=== PATIENT | male | born 1970 | race Caucasian/White ===

== ENCOUNTER 2016-10-24 04:12 | Emergency (ER) | payer OTHER ==
[~2016-10-24] VITALS: Ht 175.3 cm; Wt 103.4 kg
[~2016-10-24 04:12] MED LIST: ASPIRIN81 M4 PO; ATORVASTATIN CA80 M1 PO; AUGMENTIN 875 M1 TAB PO; HEPARIN-1/25000 UNIT IV; HYDROCODONE/ACE1 TA1 PO; METOPROLOL SUCC25 M1 PO; NITRO-BID1 GM TOP; NORCO 325 MG-51 TAB PO; PLAVIX75 M1 PO; POLYTRIM O200 GTT/BO OP
[2016-10-24] MEDS ORDERED: LISINOPRIL5 M1 PO (04:28)
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
[2016-10-24] MEDS ORDERED: CYCLOBENZAPRINE10 M1 PO (05:27)
[2016-10-24] MEDS ORDERED: TRAMADOL HCL50 M1 PO (05:27)
[2016-10-24 06:06] VITALS: BP 128/77
== END 2016-10-24 06:07 ==
LOC: ERH 04:12
DX: S16.1XXA Strain of muscle, fascia and tendon at neck level, initial encounter (principal); V47.0XXA Car driver injured in collision with fixed or stationary object in nontraffic accident, initial encounter
CPT/HCPCS: 96372; J1885

== ENCOUNTER 2017-12-15 09:21 | Emergency (ER) | payer OTHER ==
[~2017-12-15 09:21] MED LIST changes: +CYCLOBENZAPRINE10 M1 PO; +LISINOPRIL5 M1 PO; +TRAMADOL HCL50 M1 PO
[2017-12-15 09:50] LABS: ABSOLUTE BASOPHIL COUNT 0 /CUMM (0.0-0.2); ABSOLUTE EOSINOPHIL COUNT 0.2 /CUMM (0.0-0.7); ABSOLUTE GRANULOCYTE CT 4.4 /CUMM (1.4-6.5); ABSOLUTE LYMPH COUNT 1.4 /CUMM (1.2-3.4); ABSOLUTE MONOCYTE COUNT 0.5 /CUMM (0.10-0.60); BASOPHIL % 0.6 % (0.0-2.0); EOSINOPHIL % 2.9 % (0-5); GRANULOCYTE % 67.6 % (42.2-75.2); HEMATOCRIT 46.4 % (42-52); MEAN CORPUSCULAR HGB 29.5 PG (27.0-31.0); MEAN CORPUSCULAR HGB CONC 33.8 G/DL (33.0-37.0); MEAN CORPUSCULAR VOLUME 87.4 FL (80.0-94.0); MEAN PLATELET VOLUME 8.9 FL (7.4-10.4); PLATELET COUNT 177 /CUMM (130-400); RBC DISTRIBUTION WIDTH 13.3 % (11.5-14.5); WHITE BLOOD CELL COUNT 6.5 /CUMM (4.8-10.8)
--- NOTE | 2017-12-15 12:15 | ED GENERAL ADULT ---
History of Present Illness General Chief Complaint: Abdominal Pain/Flank Pain Stated Complaint: LOWER ABD PAIN Source: patient Exam Limitations: no limitations Vital Signs & Intake/Output Vital Signs & Intake/Output Vital Signs Date Time Temp Pulse Resp B/P B/P Pulse O2 O2 Flow FiO2 Mean Ox Delivery Rate 12/15 1741 136/82 12/15 1448 97.7 77 16 180/98 99 Room Air 12/15 1139 98.2 76 16 132/80 98 Room Air Room Air 12/15 0928 98.8 77 18 132/79 98 Room Air Allergies Coded Allergies: No Known Allergies (02/15/16) Reconcile Medications Clopidogrel Bisulfate (Plavix) 75 MG TABLET 1 TAB PO DAILY STENT PLACEMENT Lisinopril 5 MG TABLET 5 MG PO DAILY HIGH BLOOD PRESSURE (Reported) Metformin HCl 500 MG TABLET 1 TAB PO BID DIABETES (Reported) Metoprolol Tartrate 25 MG TABLET 0.5 TAB PO BID HEART (Reported) Oxycodone HCl/Acetaminophen (Percocet 5-325 MG Tablet) 5 MG-325 MG TABLET 1 TAB PO 4 TIMES/DAY PRN PAIN Rosuvastatin Calcium (Crestor) 40 MG TABLET 1 TAB PO DAILY CHOLESTEROL ( Reported) Triage Note: 47 YO MALE TO TRIAGE C/O LOWER ABC PAIN SINCE THIS AM THAT STARTED SUDDENLY. STATES HX OF KIDNEY STONES BUT "THIS FEELS DIFFERENT" STATES WHEN HE URIATES HE IS ONLY ABLE TO GET A SMALL AMOUT OUT. Triage Nurses Notes Reviewed? yes HPI: Patient is a 47-year-old male with past medical history of ureterolithiasis 10 years ago which he passed on his own without intervention, who presents today with abdominal pain and urinary hesitancy. He reports that he woke and performed his usual routine but did not have his usual morning bowel movement. He later developed lower abdominal cramping in the suprapubic region, and when he attempted to urinate found that it was difficult. He also noted that his urine was dark. At triage, protocol orders were placed including laboratory studies, urinalysis, and CT stone search. At the time of my initial assessment the patient had received analgesia and was feeling much improved. He denies any chest discomfort, dyspnea, diaphoresis, or other classically cardiac features. He does have history of acute coronary syndrome with angioplasty and stent placement, and states that this feels nothing like his prior heart attack. Past History Travel History Traveled to [place] past 21 day No Medical History Any Pertinent Medical History? 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 No Review of Systems Review of Systems Constitutional: Reports: no symptoms. EENTM: Reports: no symptoms. Respiratory: Reports: no symptoms. Cardiovascular: Reports: no symptoms. GI: Reports: see HPI, abdominal pain, nausea. Genitourinary: Reports: no symptoms. Musculoskeletal: Reports: see HPI, back pain. Skin: Reports: no symptoms. Neurological/Psychological: Reports: no symptoms. Hematologic/Endocrine: Reports: no symptoms. Immunologic/Allergic: Reports: no symptoms. All Other Systems: Reviewed and Negative Physical Exam Physical Exam General Appearance: severe distress Comments: HEENT: Inspection of the head reveals a normocephalic cranium with no signs of trauma. Ophtho: Extraocular muscles are intact and pupils are equal and reactive to light bilaterally with no afferent pupillary defect. The sclera are noninjected , and there is no obvious discharge. Neck: The trachea is midline, there is no obvious asymmetry or mass over the thyroid, and there is no midline cervical spine tenderness Respiratory: The lungs are clear and equal to auscultation bilaterally without wheezes, rales, or rhonchi. The patient exhibits no signs of labored breathing. Cardiac: Regular rhythm and non-tachycardic without appreciable murmurs on auscultation. No obvious JVD. GI: Abdominal examination reveals tenderness in the suprapubic region just to the left of midline. There is negative Mondragon's sign, negative McBurney's point tenderness, negative Henrry sign, negative Caal-Mayes sign, and no signs of peritonitis whatsoever on percussion or deep palpation. The skin is intact with no sign of trauma or infection. : Dark colored urine Musculoskeletal: Mild left CVA pain radiating around in a ureteral distribution toward the left lower quadrant of the abdomen Neuro: The patient is oriented to person, place, time, and situation, with no obvious focal motor deficits. There were no sensory deficits, and the patient exhibit purposeful movement of all 4 extremities. Cranial nerves II through XII are intact, and gait is normal. Behavioral: Calm and cooperative Dermatologic: Dermatologic examination reveals no diffuse rashes or exanthems, no petechiae, no ecchymoses, and no other signs of erythema or infection. Core Measures ACS in differential dx? No CVA/TIA Diagnosis: No Sepsis Present: No Sepsis Focused Exam Completed? No Progress Differential Diagnoses I considered the following diagnoses in my evaluation of the patient: Ureterolithiasis, appendicitis, cystitis, bowel obstruction, kidney tumor, diverticulitis Plan of Care: Orders Procedure Date/time Status Regular Diet 12/15 D Active Intake & Output 12/15 1139 Active URINALYSIS 12/15 934 Complete TROPONIN LEVEL 12/15 934 Complete LIPASE 12/15 934 Complete COMPREHENSIVE METABOLIC PANEL 12/15 934 Complete CBC WITHOUT DIFFERENTIAL 12/15 934 Complete Laboratory Tests 12/15/17 1125: Urinalysis MOD H, Urine Color YEL, Urine Clarity HAZY H, Urine pH 5.5, Ur Specific [place] >= 1.030, Urine Protein 30 H, Urine Ketones NEG, Urine Nitrite NEG, Urine Bilirubin NEG@ICTO, Urine Urobilinogen 0.2, Ur Leukocyte Esterase NEG , Ur Microscopic SEDIMENT EXAMINED, Urine RBC >75 H, Urine WBC RARE, Ur Epithelial Cells FEW, Urine Bacteria RARE H, Hyaline Casts 1-3 H, Urine Mucus MOD H, Urine Hemoglobin LARGE H, Urine Glucose NEG 12/15/17 0936: Anion Gap 14, Estimated GFR > 60, BUN/Creatinine Ratio 16.7, Glucose 139 H, Calcium 9.4, Total Bilirubin 0.8, AST 32, ALT 57, Alkaline Phosphatase 55, Troponin I < 0.01, Total Protein 7.5, Albumin 4.8, Globulin 2.7, Albumin/ Globulin Ratio 1.8, Lipase 69, CBC w Diff NO MAN DIFF REQ, RBC 5.30, MCV 87.4, MCH 29.5, MCHC 33.8, RDW 13.3, MPV 8.9, Gran % 67.6, Lymphocytes % 21.4, Monocytes % 7.5, Eosinophils % 2.9, Basophils % 0.6, Absolute Granulocytes 4.4, Absolute Lymphocytes 1.4, Absolute Monocytes 0.5, Absolute Eosinophils 0.2, Absolute Basophils 0 Initial ED EKG: none Comments: Patient presented with symptoms consistent with ureterolithiasis. Workup obtained confirmed this diagnosis. 3 mm stone at the left UVJ was seen. Creatinine normal. Initial doses of morphine was effective, and subsequent ketorolac was administered. Patient almost required hospitalization for analgesia, however he then passed his stone in the hospital bathroom with resolution of his symptoms. He will follow-up with his CP and with urology for further recommendations. Medical screening exam is otherwise negative, patient stable at time of discharge. Departure Departure Time of Disposition: 1426 Disposition: STILL A PATIENT Condition: Stable Clinical Impression Primary Impression: Kidney stone on left side Referrals: Patient Has No Primary Care Dr Additional Instructions: Please call this number to make an appointment with our urology team to discuss your kidney stones. Until then, use naproxen/Aleve every 12 hours for your pain. Urinate through the strainer we've provided and save any stones that you pass. Departure Forms: Customer Survey General Discharge Information Prescriptions: Current Visit Scripts Oxycodone HCl/Acetaminophen (Percocet 5-325 MG Tablet) 1 TAB PO 4 TIMES/DAY PRN PAIN #6 TAB Admission Note Spoke With: Garcia Coleman MD Documentation of Exam: Documentation of any treatments & extenuating circumstances including Concerns Regarding Discharge (functional status, medication knowledge or non-compliance, living conditions, etc.) that warrant an admission rather than observation: Severe kidney stone pain requiring multiple dosages of analgesics here in the emergency department of the narcotic modality. Patient was controlled for a time but then writhing in pain in the room and I do not feel that he would be appropriate for outpatient management. He may require urology intervention during his inpatient stay. Critical Care Note Critical Care Note Critical Care Time: non-applicable
[2017-12-15] MEDS ORDERED: METOPROLOL TART25 M1 PO (12:32)
[2017-12-15] MEDS ORDERED: METFORMIN HCL500 M3 PO (12:32)
[2017-12-15] MEDS ORDERED: CRESTOR40 M2 PO (12:32)
--- NOTE | 2017-12-15 12:54 | CT SCAN REPORT ---
EXAMINATION: CT ABDOMEN AND PELVIS WITHOUT CONTRAST CLINICAL INFORMATION: Left lower abdominal pain, renal stone. COMPARISON: 07/20/2014 CT scan. TECHNIQUE: Multidetector volumetric imaging was performed from the superior aspect of the liver through the pubic symphysis. Sagittal and coronal reformatted images were obtained on the technologist's workstation. DLP: 1011.39 mGy-cm FINDINGS: LUNG BASES: The visualized lung bases are unremarkable. LIVER, GALLBLADDER, AND BILIARY TREE: The liver is normal in size, shape, and attenuation. No biliary ductal dilatation is present. There is a 1.0 cm indistinct hepatic hypodensity in the lateral aspect of the right lobe of the liver, as seen on axial image 225 from series 3. It is unchanged as compared to 2014 CT scan and is too small to fully characterize. Statistically this represents a hepatic cyst. The gallbladder is unremarkable with no evidence of radiopaque gallstones, gallbladder wall thickening, or obvious pericholecystic inflammatory changes. PANCREAS: Unremarkable SPLEEN: Unremarkable ADRENAL GLANDS: Unremarkable KIDNEYS AND URETERS: The kidneys are normal in size, shape, and attenuation. No hydronephrosis, hydroureter, or calculi seen on the right side. There is mild fullness of the left renal collecting system and left ureter. There is a punctate calcific density in the left hemipelvis, in the course of the distal left ureter as seen on axial image 649 from series 3. It could represent a distal ureter stone. The urinary bladder is empty and cannot be evaluated. No perinephric stranding. GASTROINTESTINAL TRACT: The small and large bowel are not dilated. There is significant diverticular disease of the colon without evidence of acute diverticulitis. The appendix is not seen. No inflammatory changes in the expected position of the appendix to suggest acute appendicitis. ABDOMINAL WALL: No significant hernia is appreciated. LYMPH NODES: Normal VASCULAR: Unremarkable PELVIC VISCERA: Unremarkable OSSEOUS STRUCTURES: There is vacuum disc phenomenon at L4-L5 intervertebral disc space. The visualized bones are otherwise unremarkable. IMPRESSION: Mild fullness of the left renal collecting system and the left ureter, which could be due to a punctate distal left ureter stone. Clinical correlation is suggested. Colon diverticulosis without evidence of acute diverticulitis.
--- NOTE | 2017-12-15 15:46 | History & Physical ---
General Information and HPI MD Statement: I have seen and personally examined ALIE DANIELLE and documented this H& P. The patient is a 47 year old M who presented with a patient stated chief complaint of flank pain Source of Information: patient History of Present Illness: Patient is a 47-year-old male with past medical history of kidney stone, HTN, HLP, [place] presented to the ED for evaluation of flank pain. Allergies/Medications Allergies: Coded Allergies: No Known Allergies (02/15/16) Home Med list Clopidogrel Bisulfate (Plavix) 75 MG TABLET 1 TAB PO DAILY STENT PLACEMENT Lisinopril 5 MG TABLET 5 MG PO DAILY HIGH BLOOD PRESSURE (Reported) Metformin HCl 500 MG TABLET 1 TAB PO BID DIABETES (Reported) Metoprolol Tartrate 25 MG TABLET 0.5 TAB PO BID HEART (Reported) Oxycodone HCl/Acetaminophen (Percocet 5-325 MG Tablet) 5 MG-325 MG TABLET 1 TAB PO 4 TIMES/DAY PRN PAIN Rosuvastatin Calcium (Crestor) 40 MG TABLET 1 TAB PO DAILY CHOLESTEROL ( Reported) Past History Travel History Traveled to [place] past 21 day No Medical History Neurological: NONE EENT: NONE Cardiovascular: hypertension, hyperlipidemia, myocardial infarction Respiratory: NONE Gastrointestinal: NONE Hepatic: NONE Renal: NONE Musculoskeletal: NONE Psychiatric: NONE Endocrine: NONE Blood Disorders: NONE 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 child Services at Home: None Primary Language: Citizen Of [place] Living Will? no Functional Ability ADLs Independent: dressing, eating, toileting, bathing. Ambulation: independent IADLs Independent: shopping, housework, finances, food prep, telephone, transportation , medication admin. Assessment/Plan Assessment: VS, Ph Ex at admission: Insignificant, no fever Labs at admission: Significant, WBC 6.5, other insignificant, BEP insignificant UA: Hb positive Imagings at admission: Mild fullness of the left renal collecting system and the left ureter, which could be due to a punctate distal left ureter stone. Clinical correlation is suggested. Colon diverticulosis without evidence of acute diverticulitis. Patient was admitted to floor for management of following conditions:
[2017-12-15 17:41] VITALS: BP 136/82
[2017-12-15] MEDS ORDERED: PERCOCET 5-3251 EACH PO (18:37)
--- NOTE | 2017-12-15 19:18 | Cons- Medical ---
General Information and HPI Consulting Request Date of Consult: 12/15/17 Requested By: Dr. Coleman Sheehan Reason for Consult: Left flank pain, distal UPJ stone, CAD, severe pain. Source of Information: patient, family, old records Exam Limitations: no limitations History of Present Illness: The patient is a 47 yo male with h/o CAD (s/p stents x 4 - 2 years ago- Dr. Garvin at [facility]) and distant h/o nephrolothiasis who presented in the ED with c/o abdominal pain and urinary hesitancy. He required several doses of morphine for the pain and it was decidied to admit to inpatient. CT abd/pel showed a distal left UVJ stone. He denied any fever, chills, chest pain, nausea, vomiting, etc. He was in process to be admitted when he described relief of his pain. He did state there was a small dark colored stone in his urine and assume that he passed the stone. He elected to be discharged from the ED. Allergies/Medications Allergies: Coded Allergies: No Known Allergies (02/15/16) Home Med List: Clopidogrel Bisulfate (Plavix) 75 MG TABLET 1 TAB PO DAILY STENT PLACEMENT Lisinopril 5 MG TABLET 5 MG PO DAILY HIGH BLOOD PRESSURE (Reported) Metformin HCl 500 MG TABLET 1 TAB PO BID DIABETES (Reported) Metoprolol Tartrate 25 MG TABLET 0.5 TAB PO BID HEART (Reported) Oxycodone HCl/Acetaminophen (Percocet 5-325 MG Tablet) 5 MG-325 MG TABLET 1 TAB PO 4 TIMES/DAY PRN PAIN Rosuvastatin Calcium (Crestor) 40 MG TABLET 1 TAB PO DAILY CHOLESTEROL ( Reported) Current Medications: Current Medications Sig/Lily Start time Last Medication Dose Route Stop Time Status Admin Ketorolac 30 MG ONCE ONE 12/15 0945 DC 12/15 Tromethamine IV 12/15 0946 0937 Ketorolac 0 .STK-MED ONE 12/15 0942 DC Tromethamine .ROUTE Morphine Sulfate 0 .STK-MED ONE 12/15 1447 DC .ROUTE Morphine Sulfate 4 MG ONCE ONE 12/15 1445 DC / IV 12/15 1446 1443 Morphine Sulfate 0 .STK-MED ONE 12/15 1306 DC .ROUTE Morphine Sulfate 4 MG ONCE ONE 12/15 1300 DC 12/15 IV 12/15 1301 1302 Review of Systems Review of Systems Constitutional: Denies: no symptoms. EENTM: Denies: no symptoms. Cardiovascular: Denies: no symptoms. Respiratory: Denies: no symptoms. GI: Reports: abdominal pain. Genitourinary: Reports: hesitation. Musculoskeletal: Denies: no symptoms. Skin: Denies: no symptoms. Neurological/Psychological: Denies: no symptoms. Hematologic/Endocrine: Denies: no symptoms. Immunologic/Allergic: Denies: no symptoms. 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 Home Who Do You Live With? child Services at Home: None Primary Language: Azeri, Yakut Smoking Status: Unknown If Ever Smoked ETOH Use: occasional use Illicit Drug Use: denies illicit drug use Living Will? no Functional Ability ADLs Independent: dressing, eating, toileting, bathing. Ambulation: independent IADLs Independent: shopping, housework, finances, food prep, telephone, transportation , medication admin. Exam & Diagnostic Data Last 24 Hrs of Vital Signs/I&O Vital Signs Date Time Temp Pulse Resp B/P B/P Pulse O2 O2 Flow FiO2 Mean Ox Delivery Rate 12/15 1741 136/82 12/15 1448 97.7 77 16 180/98 99 Room Air 12/15 1139 98.2 76 16 132/80 98 Room Air Room Air 12/15 0928 98.8 77 18 132/79 98 Room Air Intake & Output 12/15 1600 12/15 0800 12/15 0000 Intake Total 0 Output Total Balance 0 Intake, Oral 0 Physical Exam General Appearance: well developed/nourished Head: atraumatic Eyes: Bilateral: normal appearance. Ears, Nose, Throat: normal pharynx, normal ENT inspection Neck: normal inspection Respiratory: normal breath sounds Cardiovascular: regular rate/rhythm Gastrointestinal: normal bowel sounds, soft, tenderness (mild left LQ tender- resolved) Extremities: normal inspection Neurologic/Psych: no motor/sensory deficits Cranial Nerves: normal hearing, normal speech, PERRL Skin: intact Last 24 Hrs of Labs/Anthony: Laboratory Tests 12/15/17 1125: Urinalysis MOD H, Urine Color YEL, Urine Clarity HAZY H, Urine pH 5.5, Ur Specific [place] >= 1.030, Urine Protein 30 H, Urine Ketones NEG, Urine Nitrite NEG, Urine Bilirubin NEG@ICTO, Urine Urobilinogen 0.2, Ur Leukocyte Esterase NEG , Ur Microscopic SEDIMENT EXAMINED, Urine RBC >75 H, Urine WBC RARE, Ur Epithelial Cells FEW, Urine Bacteria RARE H, Hyaline Casts 1-3 H, Urine Mucus MOD H, Urine Hemoglobin LARGE H, Urine Glucose NEG 12/15/17 0936: Anion Gap 14, Estimated GFR > 60, BUN/Creatinine Ratio 16.7, Glucose 139 H, Calcium 9.4, Total Bilirubin 0.8, AST 32, ALT 57, Alkaline Phosphatase 55, Troponin I < 0.01, Total Protein 7.5, Albumin 4.8, Globulin 2.7, Albumin/ Globulin Ratio 1.8, Lipase 69, CBC w Diff NO MAN DIFF REQ, RBC 5.30, MCV 87.4, MCH 29.5, MCHC 33.8, RDW 13.3, MPV 8.9, Gran % 67.6, Lymphocytes % 21.4, Monocytes % 7.5, Eosinophils % 2.9, Basophils % 0.6, Absolute Granulocytes 4.4, Absolute Lymphocytes 1.4, Absolute Monocytes 0.5, Absolute Eosinophils 0.2, Absolute Basophils 0 Diagnostic Data Other Results CT ABD/PEL IMPRESSION: Mild fullness of the left renal collecting system and the left ureter, which could be due to a punctate distal left ureter stone. Clinical correlation is suggested. Colon diverticulosis without evidence of acute diverticulitis. Assessment/Plan Assessment/Plan Impression/Plan: #Nephrolithiasis- with initial distal left UVJ stone seen on CT. Had several doses of morphine w/o relief. After admission was place, he passed stone and felt great relief in his symptoms. Wished to be discharged home. Plan: OK to discharge home- Dr. Sheehan notified. Will follow up with PCP Dr. Gayla Camejo and with a urologist. Advised to maintain hydration. #CAD- s/p Stents x 4 2 years ago. 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 Plan: Will continue usual meds- Plavix. #HTN- stable on Lisinopril/Metoprolol. Plan: Continue Lisinopril/Metoprolol. #Hyperlipidemia- on Crestor. Plan: Will continue Crestor. #DM2- on Metformin. Plan: Continue Metformin. Problem List: 1. Kidney stone on left side 2. CAD (coronary artery disease) 3. HTN (hypertension) 4. DM2 (diabetes mellitus, type 2) 5. Hyperlipidemia Other Findings/Comments: Dr. Gayla Camejo, [place] Copies To: Nell KRISHNAN,Gayla Mercado Consult Acknowledgment - Thank you for your consult request. Attending MD Review Statement Attending Statement Attending MD Statement: examined this patient, discussed with family, reviewed EMR data (avail), reviewed images, amended to note Attending Assessment/Plan: As above
== END 2017-12-15 18:27 ==
LOC: ERH 09:21 → ERHI 15:37 → ENRESERV 17:11 → CANRESERV 17:11 → ERH 18:27 → CMPBEDREQ 12-16 10:42
PROVIDERS: Physician Assistant Medical
DX: N20.0 Calculus of kidney (principal)
CPT/HCPCS: 74176; 81001; 96374; 96375; 96376; J1885